=== PATIENT | female | born 1980 | race Caucasian/White ===

== ENCOUNTER 2024-02-21 10:50 | Outpatient (REF) | payer MEDICAID, SELFPAY ==
--- NOTE | ~2024-02-21 | MR_ITS ---
EXAMINATION: MR CERVICAL SPINE WITHOUT CONTRAST CLINICAL INFORMATION: Cervical radiculopathy, right upper and lower extremity pain. COMPARISON: [Cervical spine x-ray on 11/08/2007 TECHNIQUE: MRI of the cervical spine was obtained using routine sequences without contrast. FINDINGS: The visualized cervical vertebrae are intact with normal alignment. No focal bone lesion with abnormal signal can be seen. Evaluation of the intervertebral discs show: C2/C3: Intervertebral disc height is normal, with normal T2 signal. No focal disc herniation is seen. Bilateral C2-C3 neural foramina are patent. Bilateral apophyseal joints are intact with normal alignment. C3/C4: Intervertebral disc height is normal, with normal T2 signal. Mild posterior disc protrusion is seen. Bilateral C3-C4 neural foramina are patent. Bilateral apophyseal joints are intact with normal alignment. C4/C5: Intervertebral disc height is normal, with normal T2 signal. Mild posterior disc protrusion is seen. Bilateral C4-C5 neural foramina are mildly stenosed. Bilateral apophyseal joints are intact with normal alignment. C5/C6: Intervertebral disc height is moderately decreased, with mild loss of T2 signal. Mild posterior disc protrusion is seen. There is marked asymmetric left C5-C6 neural foraminal stenosis. Bilateral apophyseal joints are intact with normal alignment. C6/C7: Intervertebral disc height is mildly decreased, with mild loss of T2 signal. Moderate posterior disc protrusion is seen. Bilateral C6-C7 neural foramina are moderately stenosed. Bilateral apophyseal joints are intact with normal alignment. C7/T1: Intervertebral disc height is normal, with normal T2 signal. No focal disc herniation is seen. Bilateral C7-T1 neural foramina are patent. Bilateral apophyseal joints are intact with normal alignment. Cervical spinal cord is normal in position and signal. MR/MR cervical spine wo con IMPRESSION: 1. Mild posterior C3-C4 to C5-C6, moderate posterior C6-C7 disc protrusions are present. 2. There is marked asymmetric left C5-C6 neural foraminal stenosis. 3. There is moderate bilateral C6-C7 neural foraminal stenosis. 4. There is mild bilateral C4-C5 neural foraminal stenosis. 5. There is no evidence of cervical spinal cord compression or signal abnormality. Electronically signed by: Nash Barba MD 03/07/2024 02:57 PM [facility]
--- NOTE | ~2024-02-21 | MR_ITS ---
EXAMINATION: MR THORACIC SPINE WITHOUT CONTRAST CLINICAL INFORMATION: Back pain, thoracic radiculopathy, right upper and lower extremity pain COMPARISON: None available. TECHNIQUE: MRI of the thoracic spine was obtained using routine sequences without contrast. FINDINGS: The visualized thoracic vertebrae are intact with normal alignment. No focal bone lesion with abnormal signal can be seen. No focal thoracic intervertebral disc herniation can be seen. T5-T6 intervertebral disc shows moderate decrease in T2 signal. No significant central thoracic spinal stenosis is found. The visualized bilateral thoracic neural foramina are patent. Bilateral apophyseal joints are intact with normal alignment. Thoracic spinal cord is normal in position and signal. MR/MR thoracic spine wo con IMPRESSION: 1. Moderate T5-T6 degenerative thoracic disc disease. 2. No focal thoracic disc herniation, spinal stenosis, spinal cord or nerve root compression can be seen. Electronically signed by: Nash Barba MD 03/07/2024 03:18 PM [facility]
== END 2024-02-21 10:51 | disposition home or self-care (01) ==
LOC: HO.MRI 10:50
PROVIDERS: PCP Internal Medicine; Visit Provider Internal Medicine
DX: M54.10 Radiculopathy, site unspecified (principal)
CPT/HCPCS: 72141; 72146

== ENCOUNTER 2024-05-08 08:27 | Outpatient (REF) | payer MEDICAID, SELFPAY ==
--- NOTE | ~2024-05-08 | XR_ITS ---
EXAMINATION: XR HIP 2 OR MORE VIEWS RIGHT HISTORY: M25.551 - Pain in right hip COMPARISON: There are no prior studies for comparison. FINDINGS: A single AP view of the pelvis and two views of the right hip are submitted. Osseous mineralization is normal. There is no fracture or dislocation. The joint space is maintained. The soft tissues are unremarkable. XR/XR hip RT min 2V IMPRESSION: Unremarkable examination of the right hip. Electronically signed by: Reji North MD 05/08/2024 03:39 PM [facility]
--- OUTSIDE RECORDS SUMMARY | 2024-05-09 08:44 | XMS_ITS | Data Portability ---
Author Organization [facility] [address] Address [address] [place] [address] Assessment No assessment recorded. Plan of Treatment Reminders Order Date Submit Date Provider Last Modified By Organization Details Last Modified Time Details Appointments None recorded. Lab None recorded. Referral None recorded. Procedures None recorded. Surgeries None recorded. Imaging None recorded. Medication Orders prednisone 10 mg tablet 2023 024 [facility]acy #[id number], [address] [place], [address], 4 12:10:12 hydroxyzine HCl 25 mg tablet 2023 024 [facility]/Pharmacy #[id number], [address] [place], [address], 4 12:10:12 Patient TargetsNo targets recorded. Patient InstructionsNo instructions recorded. Reason for Referral None Reported. 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 Medical Equipment None Reported. Allergies No known drug allergies Medications Name Sig Start Date Stop Date Status Note LastModified by Organization Details LastModified Time prednisone 10 mg tablet start 6 tabs x 3 days then 4 tabs x 3 days , then 3 tabs x 3 days, then 2 tabs x 3 days, then 1 tab x 3 days , then stop. 024 active Not Available Not Available Not Avai lable hydroxyzine HCl 25 mg tablet Take 1 tablet 3 times a day by oral route as needed for 7 days, for allergie s, Hives, itchines s. 024 active Not Available Not Available Not Avai lable Vitals Date Recorded Body height Body mass index (BMI) Body weight Pain severity - 0-10 verbal numeric rating [Score] - Reported Oxygen saturation Oxygen saturation in Arterial blood by Pulse oximetry Heart rate Respiratory rate Body temperature Systolic blood pressure Diastolic blood pressure Provider Name and Address Organization Details Last Updated DateTime 154.94 cm 26.1 kg/m2 72313.7 5 g 8 99 % 99 % 78 /min 18 /min 97.6 [degF] 112 mm[Hg] 78 mm[Hg] Nova Bonner PA [facility] 11:47:14 Social History Question Answer Notes LastModified by [employer] Details LastModified Time Tobacco Smoking Status Current Every Day Smoker Nova saul PA [employer] [facility] 09/02/2023 11:45:24 What Is Your Level Of Alcohol Consumption? None Information not available 09/02/2023 Are You Currently Employed? No Information not available 09/02/2023 Have You Had A Flu Shot This Season? No Information not available 09/02/2023 What Is Your Relationship Status? Single Information not available 09/02/2023 Have You Recently Traveled Abroad? No Information not available 09/02/2023 Are You Currently In School? No Information not available 09/02/2023 Do You Or Have You Ever Used Any Other Forms Of Tobacco Or Nicotine? No Information not available 09/02/2023 Sex: Unknown Functional Status None recorded. Mental Status None recorded. Family History Relationship Description Onset Age of this Age Resolved Age Notes LastModified by Organization Details LastModified Time Father No current problems or disability Not available 09/01 11:44:50 Mother No current problems or disability Not available 09/01 11:44:50 Medical History No medical history recorded. Gynecological HistoryNo gynecological history recorded. Obstetrics History GPAL:G 0 P 0 0 0 0 Past Encounters Encounter ID Performer Location Encounter Start Date Encounter Closed Date Diagnosis/Indication Diagnosis SNOMED-CT Code Diagnosis ICD10 Code Diagnosis Note [id number] [address] [place] [address] 03/31/2018 08:09:34 03/31/2018 08:51:50 [id number] [place] [address] 01/17/2020 09:25:15 01/17/2020 10:59:45 [id number] Serg Urbina, [employer] [address] [place] [address] 09/02/2023 11:38:39 09/02/2023 12:12:22 Contact dermatitis caused by urushiol from [facility] macrina 925124257 L25.5 Based on your presentati on and exam - I am diagnosis you with Contact Dermatitis This most likely can be related to dyes or environmen [place] exposures. The following recommenda tions will help you with your symptoms.: 1. Cool Compresses to the itchy areas. Heat will only make the rash.2. Do not scratch or itch - this can lead to infection. 3. Take Antihistam tanika - like benadryl - this will help - but when the medication s wear off the redness might return. You need to go directly to the ER if you develop:1. Wheezing2. Throat or tongue swelling3. Difficulty breathing4 . If you pass out. Poison Macrina/[place] mac Rash The contact dermatitis usually follows direct exposure with skin contact with the antigenic oleoresins (urushiols ) or the sap of the plant. Most cases follow direct exposure during outdoor activities such as walking, hiking, or camping, and may also be carried on the fur of domestic pets or livestock, clothing, forestry equipment, gardening tools, and even family members. The antigen is heat-jyoti ant and can be transporte d by smoke from burning plants. Poison Macrina Dermatitis usually clearly demarcated with sharp edges to the rash and linear distributi on of blisters where the plant has brushed against the skin.Palm prints of dermatitis may be seen if patients spread the dermatitis by self-conta ct. A generalize d erythema may be seen if there has been extensive exposure. Symptoms: Itch of the Rash: Some patients will complain significan tly of itch with minimal signs, while others will tolerate extensive dermatitis . Very itchy rashes are more likely to become secondaril y infected from excessive scratching and therefore may be treated as moderate to minimize this risk. Extent of disease: from a small localized area on one limb (mild end of spectrum) to extensive disease involving >30% of body area (severe). Severity of the dermatitis : mild erythema only (mild dermatitis ) to large bullae formation (severe). Duration of dermatitis : 1-2 days to 10-20 days (mild to severe). Signs of acute dermatitis develop 24 to 72 hours after exposure; erythema, edema, vesicles, bullae, weeping, and crusting.?Alberto matitis usually responds to 7 to 21 days' therapy Important instructio ns to follow:?- Avoid further irritation of the skin where you have contact dermatitis . --Urushiol s are absorbed quickly, so washing should begin within a few minutes of suspected exposure (but may still be of benefit up to 30 minutes later).-Fo rceful, unidirecti onal washing of exposed areas with a damp washcloth and liquid soap under hot running water is recommende d to reduce or prevent toxicodend adonis dermatitis .--Exposed clothing should be thoroughly washed with detergent but removed and handled while wearing vinyl gloves to prevent transfer of urushiols. Urushiols can penetrate rubber or latex. Call office, return to UC or PCP, or go to ER if:?- Persistenc e and worsening of symptoms even after withdrawal of irritating materials calls for medical attention. - Develop new symptoms such as fevers, chills, body aches, or feelings of illness Health Concerns Section Related Observation LastModified by Organization Detai ls LastModified Time None Recorded Concern Status LastModified by Organization Details LastModified Time None Recorded Advance Directives Directive None Recorded Payers Encounter Date Sequence Insurance Name Policy Number Policy Gipson Covered Member ID Gipson Member ID Guarantor Name 03/31/2018 1 [facility] [employer] - [facility] (O) ACACIA Combs [id number] Rafaela Combs 01/17/2020 1 [facility] OPAL (O) ACACIA Combs [id number] Rafaela Combs 09/02/2023 1 [place]: [facility] Rafaela Combs [id number] Rafaela Combs Notes Date Note Type Note Provider Name and Address Organization Details Recorded Time text/html UC Rash/Skin LesionReported bypatient.source of patient informationInformation obtained from patient; Patient arrived at Urgent Care ambulatory; was in the [facility] 5 days ago. took benadryl but rash not going away. Location:arms; left forearm, itchy maculopapular rash spreading. Quality:itchy;red;spreading Severity:moderate Duration:5 days Context:recent outdoor activity; no new detergent or skin product; no recent change in medication; no exposure to hair dye; no expsoure to new clothes/jewelry; no recent travel; no recent illness; no pets/animals in home; not affiliated with chemicals/pesticides Alleviating Factors:nothing gives relief Associated Symptoms:no fever; no fatigueNotes:did outside yard work . also have history of poison Macrina dermatitis previously Serg Urbina NP [address] [place], [address], [place] - [facility] 09/02/2023 12:10:19 OBGyn Episode No OBEpisode recorded.
== END 2024-05-08 08:28 | disposition home or self-care (01) ==
LOC: HO.HOSX 08:27
PROVIDERS: Visit Provider Physician Assistant
DX: M25.551 Pain in right hip (principal); M67.951 Unspecified disorder of synovium and tendon, right thigh
CPT/HCPCS: 73502; 99212

== ENCOUNTER 2024-05-08 10:51 | Outpatient (AMB) | payer MEDICAID, SELFPAY ==
--- NOTE | 2024-05-08 11:05 | A.OFFVIS_ITS ---
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 Patient reports her pain has been present for about 8 months. Denies injury. Her pain presents with laying down and with prolong sitting. Her pain is located at the lateral/posterior aspect of hip that radiates down the front of her leg. States at times her leg goes numb. No other tx. Hx of back pain with a recent MRI. 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 She has been having discomfort for approximately 8months . She denies injury. States the pain is along the posterior lateral aspect of the hip and goes down the leg. The pain has been worsening with time and is wose with sitting. 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 No pain with ROM of the hip or with flexion/ abd/add. There is point tenderness along the TFC. Results Reviewed Results Reviewed: XR hip RT min 2V IMPRESSION: Unremarkable examination of the right hip. Assessment & Plan Assessment & Plan (1) Tendinopathy of gluteus medius: Code(s): M67.959 - Unspecified disorder of synovium and tendon, unspecified thigh Category: Medical Plan: I recommend a course of PT to work on strengthening exercises. She deferred at t his time. She will modify activities as needed and if symptoms persist or worsen she will contact our office, otherwise, prn. Orders: Orders XR hip RT min 2V Today M25.551 - Pain in right hip Coding Level of Care Code New Pt Level 3 (65830) Complex EM visit Add On G2211 Diagnoses Tendinopathy of gluteus medius M67.959
[2024-05-08 11:06] VITALS: BMI 28.0
== END 2024-05-08 12:38 | disposition home or self-care (01) ==
PROVIDERS: PCP Internal Medicine; Visit Provider Physician Assistant
DX: M67.951 Unspecified disorder of synovium and tendon, right thigh (principal)
CPT/HCPCS: 99203

== ENCOUNTER → 2024-05-08 10:54 | Outpatient (BNV) | payer MEDICAID, SELFPAY | PROVIDERS: Visit Provider Radiology Diagnostic Radiology | DX: M25.551 Pain in right hip (principal) | CPT/HCPCS: 73502 ==